=== PATIENT | male | born 1995 | race Caucasian/White ===

== ENCOUNTER 2018-04-06 10:45 | Outpatient (CLI) | payer OTHER ==
--- NOTE | 2018-04-06 14:49 | CT ---
CT ABDOMEN AND PELVIS WITHOUT CONTRAST: Date: 04/06/18 HISTORY: Malformation of the urachus. Persistent drainage at the umbilicus. COMPARISON: None. FINDINGS: The exam was done without intravenous contrast. Lung bases are clear. No pericardial effusion. There is no nephroureterolithiasis or hydroureteronephrosis. No secondary evidence of a recently passed sto ne. There are no dilated loops of large or small bowel. There is adequate contrast enhancement of the sma ll bowel with contrast extending to the ascending colon. Small urachal remnant is appreciated from the bladder dome to the umbilicus. There is no enteric cont rast within the urachal remnant. IMPRESSION: No enteric contrast seen within the urachal remnant to suggest small bowel or large bowel involvement . This is very thin and extends from the bladder roof to the umbilicus. No evidence for fistulous for mation to the bowel. POS: [facility]
== END 2018-04-06 10:46 | disposition home or self-care (01) ==
LOC: CT 10:45
PROVIDERS: ATTEND Urology
DX: Q64.4 Malformation of urachus (principal)
CPT/HCPCS: 74176; 81001